=== PATIENT | male | born 1945 | race Caucasian/White ===

== ENCOUNTER 2016-06-27 10:51 | Inpatient (IN) | payer MEDICARE, OTHER ==
[~2016-06-27] VITALS: Ht 182.9 cm; Wt 88.5 kg
[2016-06-27 13:15] LABS: HEMOGLOBIN 15.9 gm/dl (14.0-17.5); RED BLOOD COUNT 5.3 M/UL (4.20-5.50); WHITE BLOOD COUNT 15.6 K/UL (4.5-11.0)
[2016-06-28] MEDS ORDERED: COREG 12.5MG12.5 MG PO (00:48)
[2016-06-28] MEDS ORDERED: ALPRAZOLAM0.5 MG PO (00:49)
[2016-06-28] MEDS ORDERED: CHILDREN'S ASPI81 MG PO (00:50)
[2016-06-28] MEDS ORDERED: LISINOPRIL2.5 MG PO (00:50)
[2016-06-28] MEDS ORDERED: ZANTAC 150 MG150 MG PO (00:51)
[2016-06-28] MEDS ORDERED: FLOMAX 0.4 MG0.4 MG PO (00:51)
[2016-06-28] MEDS ORDERED: HYDROCHLOROTHIA25 MG PO (00:52)
[2016-06-28] MEDS ORDERED: PULMICORT0.5 MG/21 INH (00:53)
[2016-06-28] MEDS ORDERED: BROVANA15 MCG/2 M INH (00:53)
[2016-06-28] MEDS ORDERED: CENTRUM SILVER1 EAC1 PO (00:54)
[2016-06-28] MEDS ORDERED: ZANAFLEX 4 MG TA4 MG PO (00:54)
[2016-06-28] MEDS ORDERED: SINGULAIR10 MG PO (00:55)
[2016-06-28] MEDS ORDERED: IPRAT-ALBUT 0.5-3 ML INH (00:56)
[2016-06-28] MEDS ORDERED: MYCOSTATIN100000 UTS PO (00:58)
[2016-06-28 05:54] LABS: HEMOGLOBIN 14.2 gm/dl (14.0-17.5); RED BLOOD COUNT 4.79 M/UL (4.20-5.50); WHITE BLOOD COUNT 13.8 K/UL (4.5-11.0)
[2016-06-29 04:48] LABS: HEMOGLOBIN 13.8 gm/dl (14.0-17.5); RED BLOOD COUNT 4.78 M/UL (4.20-5.50); WHITE BLOOD COUNT 11.5 K/UL (4.5-11.0)
[2016-06-29] MEDS ORDERED: OMNICEF 300 MG300 MG PO (15:52)
== END 2016-06-29 16:55 | disposition home or self-care (01) | DRG 194 ==
LOC: ER1 10:51 → ZEROF 18:22 → M/S 18:22
PROVIDERS: Student in an Organized Health Care Education/Training Program; ADMIT Internal Medicine
DX: J18.9 Pneumonia, unspecified organism (principal); N17.9 Acute kidney failure, unspecified; D69.6 Thrombocytopenia, unspecified; I25.10 Atherosclerotic heart disease of native coronary artery without angina pectoris; I25.5 Ischemic cardiomyopathy; Z95.1 Presence of aortocoronary bypass graft; G47.33 Obstructive sleep apnea (adult) (pediatric); E78.5 Hyperlipidemia, unspecified; J44.9 Chronic obstructive pulmonary disease, unspecified; R09.02 Hypoxemia; I12.9 Hypertensive chronic kidney disease with stage 1 through stage 4 chronic kidney disease, or unspecified chronic kidney disease; N18.3 Chronic kidney disease, stage 3 (moderate); K21.9 Gastro-esophageal reflux disease without esophagitis; Z87.891 Personal history of nicotine dependence; Z85.46 Personal history of malignant neoplasm of prostate; Z95.810 Presence of automatic (implantable) cardiac defibrillator; Z86.79 Personal history of other diseases of the circulatory system; Z88.6 Allergy status to analgesic agent; Z79.82 Long term (current) use of aspirin; Z79.899 Other long term (current) drug therapy; Z99.81 Dependence on supplemental oxygen; Z82.49 Family history of ischemic heart disease and other diseases of the circulatory system; Z83.3 Family history of diabetes mellitus; Z80.9 Family history of malignant neoplasm, unspecified
CPT/HCPCS: 36415; 71010; 71250; 80048; 80053; 81001; 82550; 82553; 83605; 83735; 83874; 84484; 85025; 87040; 93005; 94640; 94660; 94664; 96374; 96375; 99285; J0456; J0692; J0696; J1650; J2405; J2550; J3370; J7030; J7040; J7050

== ENCOUNTER 2020-11-06 14:43 | Emergency (ER) | payer MEDICARE, OTHER ==
[~2020-11-06 14:43] MED LIST: ALPRAZOLAM0.5 MG PO; BROVANA15 MCG/2 M INH; CENTRUM SILVER1 EAC1 PO; CHILDREN'S ASPI81 MG PO; COREG 12.5MG12.5 MG PO; FLOMAX 0.4 MG0.4 MG PO; HYDROCHLOROTHIA25 MG PO; IPRAT-ALBUT 0.5-3 ML INH; LEVAQUIN500 MG PO; LISINOPRIL2.5 MG PO; MYCOSTATIN100000 UTS PO; OMNICEF 300 MG300 MG PO; PULMICORT0.5 MG/21 INH; SINGULAIR10 MG PO; TYLENOL W/CODEIN1 E1 PO; VENTOLIN/PROVE0.5 ML INH; ZANAFLEX 4 MG TA4 MG PO; ZANTAC 150 MG150 MG PO
[2020-11-06 16:07] LABS: HEMOGLOBIN 15.3 gm/dl (14.0-17.5); RED BLOOD COUNT 5.21 M/UL (4.20-5.50); WHITE BLOOD COUNT 8.5 K/UL (4.5-11.0)
[2020-11-06 16:09] LABS: BUN/CREATININE RATIO 17 (0-10)
[2020-11-06] MEDS ORDERED: DECADRON6 MG PO ×2 (22:36→23:04)
[2020-11-06] MEDS ORDERED: ZITHROMAX250 MG PO ×2 (23:04→23:09)
[2020-11-06] MEDS ORDERED: ASPIRIN CHEWABL81 MG PO (23:04)
== END 2020-11-07 00:10 | disposition home or self-care (01) ==
LOC: ER1 14:43
PROVIDERS: Physician Assistant
DX: Z23 Encounter for immunization (principal); U07.1 COVID-19; J44.9 Chronic obstructive pulmonary disease, unspecified
CPT/HCPCS: 71045; 80053; 82550; 82553; 83874; 84484; 85025; 99285; M0243

== ENCOUNTER 2020-12-09 21:31 | Emergency (ER) | payer MEDICARE, OTHER ==
[~2020-12-09 21:31] MED LIST changes: +ASPIRIN CHEWABL81 MG PO; +DECADRON6 MG PO; +ZITHROMAX250 MG PO
== END 2020-12-09 21:45 | disposition expired ==
LOC: ER1 21:31
DX: I46.9 Cardiac arrest, cause unspecified (principal)
CPT/HCPCS: 92950; 99285; J0171